=== PATIENT | female | born 1970 | race Two or more races ===

== ENCOUNTER 2025-01-20 12:04 | Emergency (ER) | payer MEDICAID ==
[~2025-01-20] VITALS: Ht 165.1 cm; Wt 55.0 kg
[2025-01-20 12:20] VITALS: TEMP 36.8; O2SAT 100
[2025-01-20 16:19] VITALS: BP 100/48; PULSE 60; RESP 18; O2SAT 98
== END 2025-01-20 16:39 | disposition home or self-care (01) ==
LOC: ER 12:04
DX: R60.0 Localized edema (principal); Z86.59 Personal history of other mental and behavioral disorders
CPT/HCPCS: 93971; 99284